=== PATIENT | female | born 1975 | race Caucasian/White ===

== ENCOUNTER → 2017-08-31 | Outpatient (CLI) | payer OTHER ==
--- NOTE | 2017-09-01 15:33 | MAMMOGRAPHY REPORT ---
BILATERAL DIGITAL SCREENING MAMMOGRAM TOMOSYNTHESIS WITH CAD: 08/31/2017 CLINICAL HISTORY: Routine screening. Patient has no complaints. TECHNIQUE: Breast tomosynthesis in addition to standard 2D mammography was performed. Current study was also evaluated with a Computer Aided Detection (CAD) system. COMPARISON: Prior outside mammograms dated 07/27/2016 from [facility]. BREAST COMPOSITION: There are scattered areas of fibroglandular density in both breasts. FINDINGS: No suspicious masses, calcifications, or areas of architectural distortion are noted in ei ther breast. There has been no significant interval change compared to prior exams. Small circumscri bed 5 mm benign-appearing mass in the right superior anterior breast at approximately 12 to 12:30 lisette ears stable to the 2016 exam. IMPRESSION: ACR BI-RADS CATEGORY 2: BENIGN There is no mammographic evidence of malignancy. A 1 year screening mammogram is recommended. The pa tient will receive written notification of the results. Approximately 10% of breast cancers are not detected with mammography. A negative mammographic report should not delay biopsy if a clinically suggestive mass is present. Catalina Harris M.D. ah/:08/31/2017 17:07:02 Float Builder: Yi GLEASON(R)(M)(BD), [facility] letter sent: Normal 1/2 BI-RADS Code: ACR BI-RADS Category 2: Benign
== END | disposition home or self-care (01) ==
LOC: C.MAMM 10:54
PROVIDERS: ATTEND Family Medicine
DX: Z12.31 Encounter for screening mammogram for malignant neoplasm of breast (principal)

== ENCOUNTER → 2018-04-10 | Outpatient (CLI) | payer OTHER ==
--- NOTE | 2018-04-10 08:33 | DIAGNOSTIC IMAGING REPORT ---
ABDOMEN COMPLETE (US) CLINICAL HISTORY: Analyzed abdominal pain, mono. COMPARISON STUDY: 07/14/2017 FINDINGS: The pancreas appears sonographically normal. There is no evidence of abdominal aortic dilatation. The spleen is mildly enlarged measuring 14.1 cm. No splenic masses are visualized. The left kidney measures 12.8 cm in length. The right kidney measures 12 cm in length. No renal masses are visualized. There is no hydronephrosis. No hepatic masses are visualized. There is no ductal dilatation. Gallbladder the gallbladder appears normal. There is no ductal dilatation. The common bile duct measures 3 mm. No abnormality IVC were demonstrated. IMPRESSION: 1. Interval development of mild splenomegaly. 2. Otherwise unremarkable ultrasound of the upper abdomen. Electronically signed by: Byron Irvin M.D. 04/10/2018 8:31 AM Dictated Date/Time: 04/10/2018 8:27 AM
== END | disposition home or self-care (01) ==
LOC: C.ULTRBC 07:47
PROVIDERS: ATTEND Family Medicine
DX: B27.90 Infectious mononucleosis, unspecified without complication (principal); R10.84 Generalized abdominal pain

== ENCOUNTER → 2018-04-11 | Outpatient (CLI) | payer OTHER ==
[2018-04-11 09:17] LABS: HEMATOCRIT 38.2 % (37-47); HEMOGLOBIN 13.2 g/dL (12.0-16.0); MEAN CELL VOLUME 88.6 fL (80-100); MEAN CORPUSCULAR HEMOGLOBIN 30.6 pg (25-34); MEAN PLATELET VOLUME 10.4 fL (7.4-10.4); PLATELET COUNT 167 K/uL (130-400); RED CELL DISTRIBUTION WIDTH CV 13.1 % (11.5-14.5); RED CELL DISTRIBUTION WIDTH SD 42.6 fL (36.4-46.3); WHITE BLOOD COUNT 7.67 K/uL (4.8-10.8)
[2018-04-11 09:25] LABS: INR 1.1 (0.9-1.1)
[2018-04-11 09:48] LABS: MEAN CORPUSCULAR HGB CONC 34.6 g/dl (32-36)
[2018-04-11 09:50] LABS: ALKALINE PHOSPHATASE 293 U/L (45-117); ALT/SGPT 293 U/L (12-78); AST/SGOT 121 U/L (15-37); BLOOD UREA NITROGEN 6 mg/dl (7-18); CALCIUM 9.2 mg/dl (8.5-10.1); CARBON DIOXIDE 25 mmol/L (21-32); CREATININE 0.97 mg/dl (0.60-1.20); GLUCOSE 181 mg/dl (70-99); POTASSIUM 3.2 mmol/L (3.5-5.1); SODIUM 136 mmol/L (136-145); TOTAL PROTEIN 8.8 gm/dl (6.4-8.2)
[2018-04-11 10:28] LABS: HEP C IGG 13 YRS+OLDER_RFLX NEG (NEG)
[2018-04-12 03:45] LABS: HEPATITIS A IGM TC 51813E NON-REACTIVE (NON-REACTIVE); HEPATITIS B CORE IGM TC51854R NON-REACTIVE (NON-REACTIVE)
== END | disposition home or self-care (01) ==
LOC: C.LAB 08:49
PROVIDERS: ATTEND Family Medicine
DX: R94.5 Abnormal results of liver function studies (principal); R10.84 Generalized abdominal pain

== ENCOUNTER → 2018-04-13 | Outpatient (CLI) | payer OTHER ==
[2018-04-13 13:11] LABS: BASO % 0.6 %; BASO ABS # 0.05 K/uL (0-0.2); EOS % 0.1 %; EOS ABS # 0.01 K/uL (0-0.5); HEMATOCRIT 38.8 % (37-47); HEMOGLOBIN 13.4 g/dL (12.0-16.0); IG# 0.08 K/uL (0.00-0.02); LYMPH % 36.7 %; LYMPH ABS # 3.08 K/uL (1.2-3.4); MEAN CORPUSCULAR HEMOGLOBIN 30.7 pg (25-34); MONO % 6.6 %; MONO ABS # 0.55 K/uL (0.11-0.59); NEUT ABS # 4.62 K/uL (1.4-6.5); PLATELET COUNT 208 K/uL (130-400); RED CELL DISTRIBUTION WIDTH SD 42.5 fL (36.4-46.3); WHITE BLOOD COUNT 8.39 K/uL (4.8-10.8)
[2018-04-13 13:16] LABS: MEAN CORPUSCULAR HGB CONC 34.5 g/dl (32-36)
[2018-04-13 13:32] LABS: ALBUMIN 3.9 gm/dl (3.4-5.0); ALKALINE PHOSPHATASE 205 U/L (45-117); ALT/SGPT 159 U/L (12-78); AST/SGOT 37 U/L (15-37); BLOOD UREA NITROGEN 10 mg/dl (7-18); CALCIUM 8.8 mg/dl (8.5-10.1); CARBON DIOXIDE 27 mmol/L (21-32); CREATININE 0.88 mg/dl (0.60-1.20); GLUCOSE 109 mg/dl (70-99); POTASSIUM 3.9 mmol/L (3.5-5.1); SODIUM 135 mmol/L (136-145); TOTAL PROTEIN 8.8 gm/dl (6.4-8.2)
== END | disposition home or self-care (01) ==
LOC: C.LAB 12:49
PROVIDERS: ATTEND Family Medicine
DX: R10.84 Generalized abdominal pain (principal); R94.5 Abnormal results of liver function studies